=== PATIENT | male | born 1950 | race Caucasian/White ===

== ENCOUNTER 2022-05-27 10:23 | Outpatient (REF) | payer SELFPAY ==
[2022-05-27 12:16] LABS: Leukocytes Stool Qualitative NEGATIVE (NEGATIVE)
[2022-05-27 14:43] LABS: Adenovirus F 40/41 Not Detected (Not Detect.); Astrovirus Not Detected (Not Detect.); Campylobacter Not Detected (Not Detect.); Cryptosporidium Not Detected (Not Detect.); Cyclospora cayetanensis Not Detected (Not Detect.); E. coli EAEC Not Detected (Not Detect.); E. coli EPEC Not Detected (Not Detect.); E. coli ETEC Not Detected (Not Detect.); E. coli STEC Not Detected (Not Detect.); Entamoeba histolytica Not Detected (Not Detect.); Giardia lamblia Not Detected (Not Detect.); Norovirus GI/GII Not Detected (Not Detect.); Plesiomonas shigelloides Not Detected (Not Detect.); Rotavirus A Not Detected (Not Detect.); Salmonella Not Detected (Not Detect.); Sapovirus Not Detected (Not Detect.); Shigella sp./EIEC Not Detected (Not Detect.); Vibrio Not Detected (Not Detect.); Vibrio Cholerae Not Detected (Not Detect.); Yersinia enterocolitica Not Detected (Not Detect.)
== END 2022-05-27 10:24 | disposition home or self-care (01) ==
LOC: HO.LNP 10:23
PROVIDERS: Visit Provider Internal Medicine Gastroenterology
DX: R19.5 Other fecal abnormalities (principal)
CPT/HCPCS: 87177; 87209; 87507; 89055

== ENCOUNTER 2022-08-10 16:29 | Outpatient (REF) | payer SELFPAY ==
[2022-08-20 02:49] LABS: Fecal Fat Qualitative NORMAL (NORMAL)
[2022-08-21 16:49] LABS: Pancreatic Elastase-1 >500 mcg/g
== END 2022-08-10 16:30 | disposition home or self-care (01) ==
LOC: HO.LNP 16:29
PROVIDERS: Visit Provider Internal Medicine Gastroenterology
DX: R19.4 Change in bowel habit (principal)
CPT/HCPCS: 82656; 82705

== ENCOUNTER 2023-07-19 13:30 | Outpatient (AMB) | payer SELFPAY ==
[2023-07-19 13:31] VITALS: BP 132/80; PULSE 75; O2SAT 96; BMI 24.9
--- NOTE | 2023-07-19 13:31 | MHC.PC.OV ---
Vital Signs 07/19/23 13:31 Height 5 ft 10.08 in Weight 174 lb BMI 24.9 BP 132/80 Blood Pressure Location Lt brachial Position Sitting Pulse 75 Pulse Source Pulse Oximeter Pulse Oximetry (%) 96 Oxygen Delivery Method Room Air Intake Visit Reasons: Re-establish Care (Heart medications) Intake Note: Patient is a new patient here to establish care Sap Bw Consultant Required: No Allergies dronedarone [Multaq] Allergy (Severe, Verified 07/19/23 13:48) Anaphylaxis penicillin V Allergy (Severe, Verified 07/19/23 13:48) Anaphylaxis Penicillins [PENICILLINS] Allergy (Unknown, Unverified 12/07/19 15:42) HIVES tetracycline Allergy (Unknown, Verified 07/15/18 00:00) GI ciprofloxacin [From Cipro] Adverse Reaction (Intermediate, Unverified 07/19/23 14:16) renal failure Erythromycin Allergy (Unknown, Uncoded 07/15/18 00:00) GI Medication List - Last Reconciled 07/19/23 by Nusrat Sorto MD digoxin 250 mcg PO DAILY PRN metoprolol tartrate 25 mg PO BID 30 days omeprazole magnesium (Prilosec OTC) 20 mg PO DAILY PRN Tobacco use date assessed: 07/19/23 Fall risk assessment: No Falls in past year Last assessed Fall Risk: 07/19/23 Dental Screening Dental Screen Date: 07/19/23 Did you have a dental visit in the last 12 months?: Yes Did you have a dental problem in the last 6 months where you did not have access to dental care?: No Was dental information given to patient?: Patient has dentist HPI Re-establish Care (Heart medications) HPI Details 73-year-old male with a history of atrial fibrillation and GERD coming in as a new patient. Review of the notes in February 2021 had dysphagia and had a barium swallow revealing negative results. As opposed to a barium swallow in September 2020 showing laryngeal penetration and small amount of silent aspiration occurred. Noted also small sliding axial hiatal hernia but no reflux need noted. Patient did see the ear nose and throat for the cough and chest congestion for 2 and half years. 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 With the dysphagia advised speech pathology evaluation. Patient is taking digoxin (onceQ 2 months) as needed and states rarely taking them for the palpitations also takes metoprolol as needed once a week. PAtient also has loose stools seen Dr. Whitehead states cleared 11/03/2023 [facility] Medical History (Updated 07/19/23 @ 14:32 by Nusrat Sorto MD) Eczema Toxoplasma chorioretinitis Shingles Diverticular disease Cataracts, bilateral Surgical History (Updated 07/19/23 @ 14:22 by Nusrat Sorto MD) H/O inguinal hernia repair History of appendectomy History of partial colectomy Umbilical hernia Social History (Updated 07/19/23 @ 14:22 by Nusrat Sorto MD) Housing: House Comment: once beer a week Patient Tobacco Use Status: Never used Tobacco service: No Current occupational status: retired Cognitive needs: No Hearing needs: No Vision needs: No Questionnaire PHQ-9 Over the last 2 weeks, how often have you been bothered by any of the following problems? 1. Little interest or pleasure in doing things: not at all 2. Feeling down, depressed, or hopeless: not at all 3. Trouble falling or staying asleep, or sleeping too much: not at all 4. Feeling tired or having little energy: not at all 5. Poor appetite or overeating: not at all 6. Feeling bad about yourself - or that you are a failure or have let yourself or your family down: not at all 7. Trouble concentrating on things, such as reading the newspaper or watching television: not at all 8. Moving or speaking so slowly that other people could have noticed. Or the opposite - being so fidgety or restless that you have been moving around a lot more than usual: not at all 9. Thoughts that you would be better off or of hurting yourself in some way: not at all Total score: 0 Depression Screening Interpretation: Negative Depression Screening Done: Yes 23627 - PHQ-9 Billing: Yes Source: Developed by Drs. Boston Richard, Carolina Block, Liborio Giraldo and colleagues, with an educational marvin from [employer]. Thrive Questionnaire Date Thrive assessed: 07/19/23 I am a: Patient What is your living situation today?: I have a steady place to live Within the past 12 months, did the food you bought not last and you didn't have the money to get more?: Never true Within the past 12 months, did you worry whether your food would run out before you got money to buy more?: Never true Do you have trouble paying for medicines?: No Do you have trouble getting transportation to medical appointments?: No Do you have trouble paying your heating and electricity bill?: No Do you have trouble taking care of your child, family member or friend?: No Do you have trouble with day-to-day activities such as bathing, preparing meals, shopping, managing finances, etc.?: No Are you currently unemployed and looking for a job?: No Are you interested in more education?: No Please select the resources that you would like help with: None Currently or been in a relationship where the following occur: no concerns reported THRIVE Score: 0 AUDIT C Alcohol Use Questionnaire (AUDIT-C) 1. How often do you have a drink containing alcohol?: 2-3 times a week 2. How many drinks containing alcohol do you have on a typical day when you are drinking?: 1 or 2 3. How often do you have six or more drinks on one occasion?: Never Total Score: 3 ROMELIA-7 AMB Questionnaire ROMELIA-7 Date ROMELIA - 7 assessed: 07/19/23 Feeling nervous, anxious, or on edge: 0 = Not at all Not being able to stop or control worryin = Not at all Worrying too much about different things: 0 = Not at all Trouble relaxin = Not at all Being so restless that it is hard to sit still: 0 = Not at all Becoming easily annoyed or irritable: 0 = Not at all Feeling afraid as if something awful might happen: 0 = Not at all Total ROMELIA-7 score (0-4 normal; 5-9 mild; 10-14 moderate; 15-21 severe): 0 Source: Developed by Drs. Boston Richard, Carolina Block, Liborio Giraldo and colleagues, with an educational marvin from [employer]. ROMELIA-7 Assessment Billing ROMELIA-7 Assessment Tool: ROMELIA-7 Assessment 98395 Physical exam (Primary Care) Vital Signs: Last Vital Signs Pulse 75 07/19/23 13:31 BP 132/80 07/19/23 13:31 Pulse Ox 96 07/19/23 13:31 Oxygen Delivery Method Room Air 07/19/23 13:31 BMI result Body Mass Index 24.9 Tobacco/Smoking Status: Tobacco use Status Tobacco use date assessed 07/19/23 07/19/23 13:33 Patient Tobacco Use Status Never used Tobacco 07/19/23 13:51 PHQ-9: PHQ-9 Score PHQ-9: Total score 0 07/19/23 13:52 Depression Screening Interpretation: Negative Thrive Assessment: Date of Thrive Assessment Date Thrive assessed 07/19/23 07/19/23 13:33 Currently or been in a relationship where the following occur: no concerns reported Const General: alert; No acute distress Eyes Conjunctivae: conjunctivae normal Resp Auscultation: clear to auscultation bilaterally Cardio Rate: regular rate Rhythm: regular rhythm GI Inspection: Yes normal to inspection Extrem General: Yes normal to inspection and No edema Assessment and Plan Assessment & Plan (1) Atrial fibrillation: Comment: Heart ablation 05/03/2013 Dr. Aquino Code(s): I48.91 - Unspecified atrial fibrillation Plan: Presently on digoxin and metoprolol tartrate 25 mg twice a day. (2) GERD (gastroesophageal reflux disease): Code(s): K21.9 - Gastro-esophageal reflux disease without esophagitis Plan: Avoid the foods that causes that usually spicy foods, tomato products, juices, coffee, soda and foods that your sensitive to. After eating do not lie down, allow 3-4 hours before in lie down. And keep the head of bed above 30 degrees to avoid the acid from going up. (3) Eczema: Comment: Dr. Schwarz Code(s): L30.9 - Dermatitis, unspecified Plan: follow up with dermatology (4) Irritable bowel syndrome: Code(s): K58.9 - Irritable bowel syndrome without diarrhea Plan: patient has seen GI (5) Peripheral vascular disease: Code(s): I73.9 - Peripheral vascular disease, unspecified (6) Tinnitus: Comment: decreased hearing Code(s): H93.19 - Tinnitus, unspecified ear Plan: needing noise cancelling which will meet in [facility] July 2023 (7) Colon cancer screening: Comment: 2022 Code(s): Z12.11 - Encounter for screening for malignant neoplasm of colon Orders: Orders Complete Blood Count Auto Diff Today I48.91 - Unspecified atrial fibrillation Comprehensive Met. Panel Today I48.91 - Unspecified atrial fibrillation Lipid Panel Today E78.00 - Pure hypercholesterolemia, unspecified, I48.91 - Unspecified atrial fibrillation Vitamin B12 and Folate Today I48.91 - Unspecified atrial fibrillation Thyroid Stimulating Hormone Today I48.91 - Unspecified atrial fibrillation Free T4 (Free Thyroxine) Today I48.91 - Unspecified atrial fibrillation Coding Level of Care Code New Pt Level 4 (99317) Diagnoses Atrial fibrillation I48.91 GERD (gastroesophageal reflux disease) K21.9 Eczema L30.9 Irritable bowel syndrome K58.9 Peripheral vascular disease I73.9 Tinnitus H93.19 Colon cancer screening Z12.11 Additional Codes ROMELIA-7 Assessment Billing - ROMELIA-7 Assessment Tool: ROMELIA-7 Assessment [id number] ([id number])
== END 2023-07-19 14:37 | disposition home or self-care (01) ==
PROVIDERS: PCP Internal Medicine; Visit Provider Internal Medicine
DX: I48.91 Unspecified atrial fibrillation (principal); I73.9 Peripheral vascular disease, unspecified; K21.9 Gastro-esophageal reflux disease without esophagitis; K58.9 Irritable bowel syndrome, unspecified; L30.9 Dermatitis, unspecified; H93.19 Tinnitus, unspecified ear
CPT/HCPCS: 99204

== ENCOUNTER 2023-07-26 08:12 | Outpatient (REF) | payer SELFPAY ==
[2023-07-26 08:32] LABS: MANUAL DIFF FLAG NO
[2023-07-26 09:05] LABS: Basophils Absolute Auto 0.1 X10*3/uL (0.0-0.2); Basophils Percent Auto 0.7 % (0-2); Eosinophils Absolute Auto 0.5 X10*3/uL (0.0-0.4); Eosinophils Percent Auto 5.5 % (0-4); Hematocrit 47.1 % (42.0-52.0); Hemoglobin 15.4 g/dl (14.0-18.0); Imm Gran Abs Auto 0.08 X10*3/uL (0.00-0.03); Imm Gran Pct Auto 0.9 % (0.0-0.4); Lymphocytes Absolute Auto 1.2 X10*3/uL (1.2-4.9); Lymphocytes Percent Auto 14.2 % (20-40); Mean Corpuscular HGB Conc 32.7 g/dl (31.0-36.0); Mean Corpuscular Hemoglobin 30.1 pg (27.0-33.0); Mean Corpuscular Volume 92.2 fL (80.0-98.0); Mean Platelet Volume 9.2 fL (9.4-12.4); Monocytes Absolute Auto 0.8 X10*3/uL (0.1-1.2); Monocytes Percent Auto 9.1 % (2-11); Neutrophils Absolute Auto 5.9 x10*3/uL (2.0-8.3); Neutrophils Percent Auto 69.6 % (45-73); Platelet Count 214 X10*3/uL (160-400); Red Blood Count 5.11 X10*6/uL (4.60-5.80); Red Cell Distribution Width 12.9 % (11.0-16.0); White Blood Count 8.5 X10*3/uL (4.8-10.8)
[2023-07-26 09:54] LABS: Alanine Aminotransferase 19 U/L (0-40); Albumin Level 4.3 g/dL (3.5-5.0); Alkaline Phosphatase 88 U/L (39-117); Anion Gap 11 (12-20); Aspartate Amino Transferase 26 U/L (5-37); Bilirubin Total 0.5 mg/dL (0.0-1.0); Blood Urea Nitrogen 14 mg/dL (9-16); Calcium 9.4 mg/dL (8.4-10.2); Carbon Dioxide 28 mmol/L (22-29); Chloride 109 mmol/L (96-108); Cholesterol 155 mg/dL (<200); Estimated Glomerular Filt Rate > 60; Glucose Random 98 mg/dL (60-115); HDL Cholesterol 37 mg/dL (>40); LDL Cholesterol Calculated 105 mg/dL (<100); Potassium 3.9 mmol/L (3.3-5.1); Sodium 144 mmol/L (135-145); Total Protein 6.8 g/dL (6.5-8.0); Triglycerides 69 mg/dL (<150)
[2023-07-26 10:12] LABS: Free T4 (Free Thyroxine) 0.83 ng/dL (0.71-1.85); Thyroid Stimulating Hormone 2.22 uIU/mL (0.32-4.0)
[2023-07-26 10:17] LABS: Folate 13.6 ng/mL (> or = 4.0); Vitamin B12 282 pg/mL (200-900)
[2023-07-26 17:05] LABS: Estimated Average Glucose 111 mg/dL; Hemoglobin A1C 144.1333 umol/L; Hemoglobin A1c % 5.5 % (<6.0)
== END 2023-07-26 08:13 | disposition home or self-care (01) ==
LOC: HO.LAB 08:12
PROVIDERS: PCP Internal Medicine; Visit Provider Internal Medicine
DX: I48.91 Unspecified atrial fibrillation (principal); E78.00 Pure hypercholesterolemia, unspecified
CPT/HCPCS: 36415; 80053; 80061; 82607; 82746; 83036; 84439; 84443; 85025